=== PATIENT | male | born 1950 | race Caucasian/White ===

== ENCOUNTER 2018-10-14 09:00 | Day surgery (SDC) | payer OTHER ==
[~2018-10-14 09:00] MED LIST: ASA81 MG PO; CRESTOR20 MG PO; DIOVAN160 M1 PO; EFFEXOR XR75 MG PO; GABAPENTIN100 MG PO; NABUMETONE500 MG PO; ORPH100T PO; PERCOCET 5-3251 EACH PO; PERCOCET 5/3251 TAB PO; XARELTO10 MG PO; [UNRECOGNIZED DRUG - OTHER] PO
== END 2018-10-14 14:45 | disposition home or self-care (01) ==
LOC: AMB-ENDOS 09:00
DX: K64.1 Second degree hemorrhoids (principal)